=== PATIENT | female | born 1970 | race Caucasian/White ===

== ENCOUNTER 2024-05-04 07:35 | Outpatient (CLI) | payer BC | END 2024-05-04 07:36 | disposition home or self-care (01) | LOC: BICMAMMO 07:35 | PROVIDERS: ATTEND Family Medicine | DX: Z12.31 Encounter for screening mammogram for malignant neoplasm of breast (principal); Z91.89 Other specified personal risk factors, not elsewhere classified | CPT/HCPCS: 77063; 77067 ==

== ENCOUNTER 2025-04-14 08:48 | Outpatient (CLI) | payer BC | END 2025-04-14 08:49 | disposition home or self-care (01) | LOC: BICMAMMO 08:48 | PROVIDERS: ATTEND Family Medicine | DX: N95.8 Other specified menopausal and perimenopausal disorders (principal); M85.851 Other specified disorders of bone density and structure, right thigh; M85.852 Other specified disorders of bone density and structure, left thigh | CPT/HCPCS: 77080 ==